=== PATIENT | female | born 1990 | race Hispanic/Latino ===

== ENCOUNTER 2019-04-04 23:00 | Inpatient (IN) | payer BC ==
--- NOTE | 2019-04-04 23:18 | Emergency Department Report ---
ED General Adult HPI - General Chief complaint: Abdominal Pain Stated complaint: ABD PAIN LUQ Time Seen by Provider: 04/04/19 23:15 Source: patient, RN notes reviewed Mode of arrival: Ambulatory Limitations: No Limitations - History of Present Illness Initial comments: This is a 28-year-old female. She is not known to this provider previously. She does not have a local primary care doctor. 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 Louis, with [facility]. Her past medical history includes paroxysmal A. fib, now resolved, currently on aspirin therapy, metoprolol, and flecainide. Has a distant history of kidney stones when she was a child. Currently on oral contraceptives. The patient presents to the emergency room today with complaints of nontraumatic left upper quadrant pain. The pain radiates to the epigastric region, into the back/flank. There is positive nausea, vomiting. Pain is aching and throbbing, increases with palpation, positioning, range of motion, decreases with rest and certain body positions. Currently, no nausea at this time, patient took antirheumatic medication prior to my evaluation at home. The patient meets no complaint of headache, neck pain, chest pain, shortness of breath. She denies urinary symptoms. Denies fevers and chills. Denies right lower quadrant abdominal pain. Denies DVT, pulmonary embolus risk factors, with the exception of oral contraceptive use. She has no nausea at this time, but still has some pain. The patient intermittent over the past few days, and gradually getting worse. -: Gradual, days(s) Location: abdomen Radiation: back, abdomen Quality: aching Consistency: intermittent Improves with: other Worsens with: other - Related Data Allergies Allergy/AdvReac Type Severity Reaction Status Date / Time No Known Allergies Allergy Verified 04/05/19 01:15 ED Review of Systems ROS: Stated complaint: ABD PAIN LUQ Other details as noted in HPI Constitutional: denies: fever Eyes: denies: eye discharge ENT: denies: epistaxis Respiratory: denies: cough Cardiovascular: denies: chest pain, syncope Gastrointestinal: abdominal pain, nausea, vomiting Genitourinary: denies: urgency, dysuria, frequency Musculoskeletal: back pain Skin: denies: lesions Neurological: denies: weakness Psychiatric: denies: anxiety ED Past Medical Hx - Past Medical History Previous Medical History?: Yes Hx Kidney Stones: Yes Additional medical history: afib - Surgical History Past Surgical History?: Yes Additional Surgical History: Right ACL reconstruction, "kidneys" - Social History Smoking Status: Current Every Day Smoker Substance Use Type: Alcohol ED Physical Exam - General Limitations: No Limitations General appearance: alert, in no apparent distress - Head Head exam: Present: atraumatic, normocephalic - Eye Eye exam: Present: normal appearance, EOMI. Absent: nystagmus - ENT ENT exam: Present: normal exam, normal orophraynx, mucous membranes moist, normal external ear exam - Neck Neck exam: Present: normal inspection, full ROM. Absent: tenderness, me ningismus - Respiratory Respiratory exam: Present: normal lung sounds bilaterally. Absent: respiratory distress - Cardiovascular Cardiovascular Exam: Present: normal rhythm, tachycardia, normal heart sounds. Absent: systolic murmur, diastolic murmur, rubs, gallop - GI/Abdominal GI/Abdominal exam: Present: soft, tenderness, other (there is left upper quadrant tenderness to deep palpation. There is no right upper quadrant tenderness. There is no right lower quadrant tenderness.). Absent: distended, guarding, rebound, rigid, pulsatile mass - Extremities Exam Extremities exam: Present: normal inspection, full ROM, other (2+ pulses noted in the bilateral upper, lower extremities. Compartments soft. No long bony tenderness. The pelvis is stable.). Absent: pedal edema, joint swelling, calf tenderness - Back Exam Back exam: Present: normal inspection, full ROM, CVA tenderness (L). Absent: t enderness, CVA tenderness (R), paraspinal tenderness, vertebral tenderness - Neurological Exam Neurological exam: Present: alert, normal gait, other (Extraocular movements intact. Tongue midline. No facial droop. Facial sensation intact to light touch in the V1, V2, V3 distribution bilaterally. 5 and 5 strength in 4 extremities.. Sensation is intact to light touch in 4 extremities.). Absent: motor sensory deficit - Psychiatric Psychiatric exam: Present: anxious - Skin Skin exam: Present: warm, dry, intact, normal color. Absent: rash ED Course Vital Signs 04/04/19 04/04/19 04/04/19 23:06 23:22 23:30 Temperature 98.1 F Pulse Rate 100 H 100 H Respiratory 16 18 13 Rate Blood Pressure 111/73 Blood Pressure [Right] O2 Sat by Pulse 100 Oximetry 04/05/19 04/05/19 04/05/19 00:00 00:31 01:01 Temperature Pulse Rate 96 H 93 H 92 H Respiratory 17 23 24 Rate Blood Pressure 119/71 119/71 119/71 Blood Pressure [Right] O2 Sat by Pulse 100 Oximetry 04/05/19 04/05/19 04/05/19 02:33 03:56 04:00 Temperature 99.5 F Pulse Rate Respiratory 17 Rate Blood Pressure 122/75 Blood Pressure [Right] O2 Sat by Pulse Oximetry 04/05/19 04/05/19 04:15 04:30 Temperature Pulse Rate 97 H 98 H Respiratory 20 Rate Blood Pressure 121/75 Blood Pressure 120/70 [Right] O2 Sat by Pulse 100 Oximetry - Reevaluation(s) Reevaluation #1: 04/04/19 23:56 Differential diagnosis, including not limited to: Renal colic, urinary tract infection, pancreatitis, pneumonia, pulmonary embolus Assessment and plan: 28-year-old female with left upper quadrant pain, tenderness, on oral contraceptives, not hypoxic, somewhat tachycardic, likely secondary to pain. I find the patient to be low risk by well's criteria. The patient otherwise has no pulmonary embolus or DVT risk factors. She appears to be uncomfortable. Remainder of physical exam unremarkable. She states she is not . We will treat the patient's pain and symptoms. We will obtain screening laboratory studies, urinalysis, left sided renal ultrasound, and x-ray of the chest. We will reassess once her data points have resulted. Reevaluation #2: 04/05/19 00:26 Laboratory studies reviewed and appreciated. Suspect renal/urinary tract infection etiology at this point in time. X-ray of the chest appears to be unremarkable. D-dimer slightly elevated. Went back and discussed this with the patient. I explain to the patient that I thought it was unlikely that the patient has a pulmonary embolus, and that is more likely that she has a primary renal issue. Patient prefers not to have CTA of chest secondary to concern for radiation exposure. Risks of undiagnosed PE were discussed with the patient, although, at this point time, I think a pulmonary embolus is quite unlikely. Through shared decision making, patient denied agreed to not obtain CTA of chest at this point time. Reevaluation #3: 04/05/19 04:36 Patient is experiencing intractable nausea and vomiting. Not able to keep any liquids down. Patient medicated with multiple anti-medic therapy. Patient also ruling in for systemic inflammatory response syndrome. Please note that patient was loaded empirically with antibiotics initially by myself, as we anticipated discharge. Therefore, blood cultures and lactic acid are drawn after antibiotic administration. Discussed with patient recommendation for admission for supportive care, IV fluids, and IV anti-medic. Patient verbalizes understanding and is amenable to this plan of care. Reevaluation #4: 04/05/19 04:37 CT scan of the abdomen and pelvis negative for acute disease, however, based off of the presentation, pyelonephritis is leading diagnosis. Reevaluation #5: 04/05/19 04:54 Dr Elena to admit ED Medical Decision Making - Lab Data Result diagrams: 04/04/19 23:47 04/04/19 23:47 Vital Signs 04/04/19 23:06 Temperature 98.1 F Respiratory 16 Rate - EKG Data -: EKG Interpreted by Me EKG shows normal: sinus rhythm Rate: normal - EKG Data When compared to previous EKG there are: previous EKG unavailable 04/04/19 23:57 Limited by motion artifact. This is a normal sinus rhythm. 95 bpm. Normal axis. QTC within normal limits. Limited by motion artifact. Not having chest pain. Not consistent with ST elevation myocardial infarction. - Radiology Data Radiology results: report reviewed, image reviewed interpreted by me: X-ray of the chest appears to be negative for acute disease. Print Report Referring Physician: KIARA MENDEZ Patient Name: KAYLIN ANN Date of : 1990 Sex: Female Report Date: 2019-04-05 Report Status: Finalized Findings [facility] [address] [place] [address] Cat Scan Report Signed Patient: KAYLIN ANN MR#: [id number] 0 : 1990 Acct:[id number] Age/Sex: 28 / F ADM Date: 04/04/19 Loc: ED Attending Dr: Ordering Physician: KIARA MENDEZ MD Date of Service: 04/05/19 Procedure(s): CT abdomen pelvis w con Accession Number(s): [id number] cc: KIARA MENDEZ MD PROCEDURE: CT ABDOMEN PELVIS W CON TECHNIQUE: Computerized axial tomography of the abdomen and pelvis was performed after the IV injection of iodinated nonionic contrast. CT DOSE LENGTH PRODUCT: mGycm HISTORY: left flank pain COMPARISONS: None . FINDINGS: Visualized lower thorax: No significant abnormality. Liver: Normal size and attenuation. Spleen: Normal size and attenuation. Gallbladder and biliary system: Normal. Pancreas: Normal. Adrenals: Normal. Kidneys: There are tiny bilateral kidney stones greater on the left. There are no ureteral stones. There is no hydronephrosis. There is no radiographic evidence of pyelonephritis.. GI tract: There is no bowel obstruction, colitis or enteritis. There is moderate stool in the colon. There is no fecal impaction. The appendix is normal.. Lymph nodes and mesentery: Normal. Vasculature: Normal.. Bladder: Normal. Reproductive organs: Normal uterus and ovaries.. Peritoneum: There is no ascites or free air, abscess or adenopathy.. Musculoskeletal structures: No significant abnormality. Other: None. IMPRESSION: There are tiny bilateral kidney stones greater on the left. There are no ureteral stones. There is no hydronephrosis. There is no radiographic evidence of pyelonephritis.. There is no bowel obstruction, colitis or enteritis. There is moderate stool in the colon. There is no fecal impaction. The appendix is normal.. There is no ascites or free air, abscess or adenopathy.. This document is electronically signed by Gonzales Austin MD., April 05 2019 02:48:28 AM ET Transcribed By: CO Dictated By: GONZALES AUSTIN MD Electronically Authenticated By: GONZALES AUSTIN MD Signed Date/Time: 04/05/19 Critical care attestation.: If time is entered above; I have spent that time in minutes in the direct care of this critically ill patient, excluding procedure time. ED Disposition Clinical Impression: Systemic inflammatory response syndrome (SIRS), Intractable nausea and vomiting, Pyelonephritis Disposition: OP ADMIT IP TO THIS HOSP Is pt being admited?: Yes Condition: Good Instructions: Abdominal Pain (ED) Referrals: KHADRA WHITMAN MD [Primary Care Provider] - 3-5 Days
[2019-04-04] MEDS ORDERED: TORADOL IV ONE (23:40)
[2019-04-04] MEDS ORDERED: NACL 0.9% 1000 ML 1,000 ML IV ONE (23:40)
[2019-04-04] MEDS ORDERED: SUBLIMAZE IV ONE (23:40)
[2019-04-05 00:06] LABS: Hematocrit 34.4 % (30.3-42.9); Hemoglobin 11.6 gm/dl (10.1-14.3); Mean Corpuscular HGB Conc 34 % (30-34); Mean Corpuscular Volume 93 fl (79-97); Platelet Count 194 K/mm3 (140-440); Red Blood Count 3.68 M/mm3 (3.65-5.03); Red Cell Distribution Width 11.9 % (13.2-15.2)
[2019-04-05 00:10] LABS: HCG Qualitative,Urine Negative (Negative)
[2019-04-05 00:15] LABS: Bilirubin,Urine NEG (Negative); Blood,Urine MOD (Negative); Color,Urine Yellow (Yellow); Protein,Urine <15 mg/dL mg/dL (Negative); Urobilinogen,Urine < 2.0 mg/dL (<2.0)
[2019-04-05 00:18] LABS: INR 1.03 (0.87-1.13)
[2019-04-05 00:22] LABS: Alanine Aminotransferase 9 units/L (7-56); Albumin 3.9 g/dL (3.9-5); BUN/Creatinine Ratio 9; Blood Urea Nitrogen 6 mg/dL (7-17); Calcium 8.9 mg/dL (8.4-10.2); Hemolysis Index 7
[2019-04-05] MEDS ORDERED: ROCEPHIN/NS 1 GM/50 ML 1 GM/50 ML BAG IV ONE (00:27)
--- NOTE | 2019-04-05 00:52 | XRay Report ---
PROCEDURE: XR CHEST ROUTINE 2V TECHNIQUE: PA and lateral chest radiographs were obtained. HISTORY: left lower thoracic pain, on ocp COMPARISONS: None. FINDINGS: Heart: Normal. Mediastinum/Vessels: Normal. Lungs/Pleural space: Normal. Bony thorax: No acute osseous abnormality. IMPRESSION: Normal examination. This document is electronically signed by Gonzales Barfield MD., April 05 2019 12:50:10 AM ET
[2019-04-05] MEDS ORDERED: REGLAN IV ONE (01:04)
[2019-04-05] MEDS ORDERED: REGLAN ONE (01:07)
--- NOTE | 2019-04-05 02:50 | Cat Scan Report ---
PROCEDURE: CT ABDOMEN PELVIS W CON TECHNIQUE: Computerized axial tomography of the abdomen and pelvis was performed after the IV inject ion of iodinated nonionic contrast. CT DOSE LENGTH PRODUCT: mGycm HISTORY: left flank pain COMPARISONS: None . FINDINGS: Visualized lower thorax: No significant abnormality. Liver: Normal size and attenuation. Spleen: Normal size and attenuation. Gallbladder and biliary system: Normal. Pancreas: Normal. Adrenals: Normal. Kidneys: There are tiny bilateral kidney stones greater on the left. There are no ureteral stones. Th ere is no hydronephrosis. There is no radiographic evidence of pyelonephritis.. GI tract: There is no bowel obstruction, colitis or enteritis. There is moderate stool in the colon. There is no fecal impaction. The appendix is normal.. Lymph nodes and mesentery: Normal. Vasculature: Normal.. Bladder: Normal. Reproductive organs: Normal uterus and ovaries.. Peritoneum: There is no ascites or free air, abscess or adenopathy.. Musculoskeletal structures: No significant abnormality. Other: None. IMPRESSION: There are tiny bilateral kidney stones greater on the left. There are no ureteral stones. There is no hydronephrosis. There is no radiographic evidence of pyelonephritis.. There is no bowel obstruction, colitis or enteritis. There is moderate stool in the colon. There is n o fecal impaction. The appendix is normal.. There is no ascites or free air, abscess or adenopathy.. This document is electronically signed by Gonzales Barfield MD., April 05 2019 02:48:28 AM ET
[2019-04-05] MEDS ORDERED: D5/0.45NS 1,000 ML IV SCH (03:00)
[2019-04-05] MEDS ORDERED: ZOFRAN IV ONE (03:24)
[2019-04-05] MEDS ORDERED: TYLENOL PO ONE (03:59)
[2019-04-05] MEDS ORDERED: NACL 0.9% 1000 ML 1,000 ML IV ONE (04:35)
--- NOTE | 2019-04-05 05:23 | History and Physical Report ---
History of Present Illness Date of examination: 04/05/19 Date of admission: 04/05/2019 Chief complaint: Dysuria and left flank pain for 3 days History of present illness: 28-year old female with past medical history of paroxysmal atrial fibrillation on aspirin and metoprolol and flecainide comes in for left upper quadrant pain. Associated nausea and vomiting. Pain is about 7-10 on a scale of 1-10. Sharp in nature. Intermittent. Patient also has dysuria. Low-grade fever present. Patient has history of kidney stones in the past especially at the age of 11 at which time she had ureteral stents which were removed later. No exacerbating or relieving factors Past Medical History Previous Medical History?: Yes Hx Kidney Stones: Yes Additional medical history: afib Surgical History Past Surgical History?: Yes Additional Surgical History: Right ACL reconstruction, "kidneys" Social History Smoking Status: Current Every Day Smoker Substance Use Type: Alcohol Family history HTN Review of Systems ROS: Stated complaint: ABD PAIN LUQ Other details as noted in HPI Constitutional: denies: fever Eyes: denies: eye discharge ENT: denies: epistaxis Respiratory: denies: cough Cardiovascular: denies: chest pain, syncope Gastrointestinal: abdominal pain, nausea, vomiting Genitourinary: denies: urgency, dysuria, frequency Musculoskeletal: back pain Skin: denies: lesions Neurological: denies: weakness Psychiatric: denies: anxiety Medications and Allergies Allergies Allergy/AdvReac Type Severity Reaction Status Date / Time No Known Allergies Allergy Verified 04/05/19 01:15 Active Meds: Active Medications Dextrose/Sodium Chloride (D5/0.45ns) 1,000 mls @ 0 mls/hr IV DIRECT SERA Last Admin: 04/05/19 03:55 Dose: 999 mls/hr Documented by: Sodium Chloride (Nacl 0.9% 1000 Ml) 1,000 mls @ 999 mls/hr IV BOLUS ONE Stop: 04/05/19 05:35 Last Admin: 04/05/19 04:57 Dose: 999 mls/hr Documented by: Exam - Constitutional Vitals: Temp Pulse Resp BP Pulse Ox 99.5 F 98 H 20 121/75 100 04/05/19 03:56 04/05/19 04:30 04/05/19 04:15 04/05/19 04:30 04/05/19 04:15 General appearance: Present: no acute distress, well-nourished - EENT Eyes: Present: PERRL ENT: hearing intact, clear oral mucosa - Neck Neck: Present: supple, normal ROM - Respiratory Respiratory effort: normal Respiratory: bilateral: CTA - Cardiovascular Heart rate: 95 Rhythm: regular Heart Sounds: Present: S1 & S2. Absent: rub, click - Extremities Extremities: pulses symmetrical, No edema Peripheral Pulses: within normal limits - Abdominal General gastrointestinal: Present: soft, non-tender, non-distended, normal bowel sounds Localized gastrointestinal: tender: LUQ (no guarding) Female genitourinary: Present: normal - Integumentary Integumentary: Present: clear, warm, dry - Musculoskeletal Musculoskeletal: gait normal, strength equal bilaterally - Psychiatric Psychiatric: appropriate mood/affect, intact judgment & insight - Neurologic Neurologic: CNII-XII intact, moves all extremities - Allied Health Allied health notes reviewed: nursing, case management Results - Labs CBC & Chem 7: 04/04/19 23:47 04/04/19 23:47 Labs: Laboratory Last Values WBC 15.8 K/mm3 (4.5-11.0) H 04/04/19 23:47 RBC 3.68 M/mm3 (3.65-5.03) 04/04/19 23:47 Hgb 11.6 gm/dl (10.1-14.3) 04/04/19 23:47 Hct 34.4 % (30.3-42.9) 04/04/19 23:47 MCV 93 fl (79-97) 04/04/19 23:47 MCH 32 pg (28-32) 04/04/19 23:47 MCHC 34 % (30-34) 04/04/19 23:47 RDW 11.9 % (13.2-15.2) L 04/04/19 23:47 Plt Count 194 K/mm3 (140-440) 04/04/19 23:47 PT 14.1 Sec. (12.2-14.9) 04/04/19 23:47 INR 1.03 (0.87-1.13) 04/04/19 23:47 267.08 ng/mlDDU (0-234) H 04/04/19 23:47 Sodium 137 mmol/L (137-145) 04/04/19 23:47 Potassium 3.8 mmol/L (3.6-5.0) 04/04/19 23:47 Chloride 103.3 mmol/L (98-107) 04/04/19 23:47 Carbon Dioxide 21 mmol/L (22-30) L 04/04/19 23:47 17 mmol/L 04/04/19 23:47 BUN 6 mg/dL (7-17) L 04/04/19 23:47 0.7 mg/dL (0.7-1.2) 04/04/19 23:47 Estimated GFR > 60 ml/min 04/04/19 23:47 9 % 04/04/19 23:47 Glucose 95 mg/dL (65-100) 04/04/19 23:47 Calcium 8.9 mg/dL (8.4-10.2) 04/04/19 23:47 0.30 mg/dL (0.1-1.2) 04/04/19 23:47 AST 14 units/L (5-40) 04/04/19 23:47 ALT 9 units/L (7-56) 04/04/19 23:47 58 units/L (35-129) 04/04/19 23:47 6.6 g/dL (6.3-8.2) 04/04/19 23:47 3.9 g/dL (3.9-5) 04/04/19 23:47 1.4 % 04/04/19 23:47 12 units/L (13-60) L 04/04/19 23:47 Yellow (Yellow) 04/04/19 23:10 Clear (Clear) 04/04/19 23:10 5.0 (5.0-7.0) 04/04/19 23:10 Ur Specific [place] 1.009 (1.003-1.030) 04/04/19 23:10 <15 mg/dl mg/dL (Negative) 04/04/19 23:10 Neg mg/dL (Negative) 04/04/19 23:10 Neg mg/dL (Negative) 04/04/19 23:10 Mod (Negative) 04/04/19 23:10 Neg (Negative) 04/04/19 23:10 Ur Reducing Substances Not Reportable 04/04/19 23:10 Neg (Negative) 04/04/19 23:10 Not Reportable 04/04/19 23:10 < 2.0 mg/dL (<2.0) 04/04/19 23:10 Ur Leukocyte Esterase Lg (Negative) 04/04/19 23:10 71.0 /HPF (0.0-6.0) H 04/04/19 23:10 4.0 /HPF (0.0-6.0) 04/04/19 23:10 U Epithel Cells (Auto) < 1.0 /HPF (0-13.0) 04/04/19 23:10 Urine HCG, Qual Negative (Negative) 04/04/19 23:10 Short CBC 04/04/19 Range/Units 23:47 WBC 15.8 H (4.5-11.0) K/mm3 Hgb 11.6 (10.1-14.3) gm/dl Hct 34.4 (30.3-42.9) % Plt Count 194 (140-440) K/mm3 BMP 04/04/19 23:47 Sodium 137 Potassium 3.8 Chloride 103.3 Carbon Dioxide 21 L BUN 6 L Creatinine 0.7 Glucose 95 Calcium 8.9 Liver Function 04/04/19 Range/Units 23:47 Total Bilirubin 0.30 (0.1-1.2) mg/dL AST 14 (5-40) units/L ALT 9 (7-56) units/L Alkaline Phosphatase 58 (35-129) units/L Albumin 3.9 (3.9-5) g/dL Urine 04/04/19 Range/Units 23:10 Urine Color Yellow (Yellow) Urine pH 5.0 (5.0-7.0) Ur Specific [place] 1.009 (1.003-1.030) Urine Protein <15 mg/dl (Negative) mg/dL Urine Glucose (UA) Neg (Negative) mg/dL - Imaging and Cardiology EKG: report reviewed (sinus rhythm heart rate of 95/m no acute ST-T wave changes) Chest x-ray: report reviewed (no acute findings) Imaging and Cardiology: CT abdomen There are tiny bilateral kidney stones greater on the left. There are no ureteral stones. There is no hydronephrosis. There is no radiographic evidence of pyelonephritis.. There is no bowel obstruction, colitis or enteritis. There is moderate stool in the colon. There is no fecal impaction. The appendix is normal.. There is no ascites or free air, abscess or adenopathy.. Assessment and Plan Advance Directives: Yes (full code) VTE prophylaxis?: Chemical Plan of care discussed with patient/family: Yes - Patient Problems (1) Systemic inflammatory response syndrome (SIRS) Current Visit: Yes Status: Acute Plan to address problem: Signs and symptoms consistent with SIRS Patient is a white count of 15,400 Urine WBCs about 71 IV Rocephin and IV fluids for now (2) Acute pyelonephritis Current Visit: Yes Status: Acute Plan to address problem: IV fluids and IV Rocephin pending urine cultures (3) Renal calculi Current Visit: Yes Status: Chronic Plan to address problem: Small Nonobstructive asymptomatic (4) Paroxysmal atrial fibrillation Current Visit: Yes Status: Inactive Plan to address problem: On flecainide and metoprolol (5) DVT prophylaxis Current Visit: Yes Status: Acute Plan to address problem: On Lovenox and GI prophylaxis
[2019-04-05] MEDS ORDERED: DILAUDID IV PRN (05:32)
[2019-04-05] MEDS ORDERED: TYLENOL PO PRN ×2 (05:32→05:34)
[2019-04-05] MEDS ORDERED: ZOFRAN IV PRN (05:32)
[2019-04-05] MEDS ORDERED: SODIUM CHLORIDE FLUSH SYRINGE 10 ML IV PRN ×2 (05:32→05:34)
[2019-04-05] MEDS ORDERED: REGLAN IV PRN (05:34)
[2019-04-05] MEDS: ZOFRAN IV PRN ×2 (07:59→17:43)
[2019-04-05] MEDS ORDERED: MORPHINE IV PRN (08:58)
[2019-04-05] MEDS ORDERED: TORADOL IV ONE (09:30)
[2019-04-05] MEDS ORDERED: SODIUM CHLORIDE FLUSH SYRINGE 10 ML IV SCH (10:00)
[2019-04-05] MEDS: PHENERGAN PR PRN (11:01)
[2019-04-05] MEDS: LOPRESSOR PO SCH (11:01)
[2019-04-05] MEDS: ROCEPHIN/NS 2 GM/100 ML 2 GM/100 ML BAG IV SCH (11:02)
[2019-04-05] MEDS: NACL 0.9% 1000 ML 1,000 ML IV SCH (11:03)
[2019-04-05] MEDS: SODIUM CHLORIDE FLUSH SYRINGE 10 ML IV SCH ×2 (11:25→23:45)
--- NOTE | 2019-04-05 11:31 | Event Note ---
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
[2019-04-05] MEDS: TAMBOCOR PO SCH ×2 (17:37→21:46)
[2019-04-05] MEDS: HALFPRIN EC PO SCH (17:43)
[2019-04-05] MEDS: TORADOL IV SCH (21:47)
[2019-04-06] MEDS: NACL 0.9% 1000 ML 1,000 ML IV SCH ×2 (01:29→14:32)
[2019-04-06] MEDS: ZOFRAN IV PRN (01:52)
[2019-04-06] MEDS: TORADOL IV SCH ×2 (06:48→17:34)
[2019-04-06 06:53] LABS: Basophils % (Auto) 0.1 % (0.0-1.8); Eosinophils # (Auto) 0.1 K/mm3 (0.0-0.4); Eosinophils % (Auto) 0.6 % (0.0-4.3); Hemoglobin 9.8 gm/dl (10.1-14.3); Lymphocytes # (Auto) 1.4 K/mm3 (1.2-5.4); Lymphocytes % (Auto) 13.8 % (13.4-35.0); Mean Corpuscular HGB Conc 35 % (30-34); Mean Corpuscular Volume 93 fl (79-97); Monocytes # (Auto) 0.9 K/mm3 (0.0-0.8); Monocytes % (Auto) 9.2 % (0.0-7.3); Platelet Count 177 K/mm3 (140-440); Red Blood Count 3.02 M/mm3 (3.65-5.03); Red Cell Distribution Width 11.8 % (13.2-15.2)
[2019-04-06 07:08] LABS: Hematocrit 30.1 % (30.3-42.9)
[2019-04-06 07:17] LABS: Alanine Aminotransferase 8 units/L (7-56); Albumin 3.3 g/dL (3.9-5); BUN/Creatinine Ratio 8; Blood Urea Nitrogen 5 mg/dL (7-17); Calcium 8.2 mg/dL (8.4-10.2); Hemolysis Index 4
[2019-04-06] MEDS: TAMBOCOR PO SCH ×2 (09:11→21:55)
[2019-04-06] MEDS: PHENERGAN PR PRN ×2 (09:11→20:42)
[2019-04-06] MEDS: PERCOCET 5/325 PO PRN (09:11)
[2019-04-06] MEDS: ROCEPHIN/NS 2 GM/100 ML 2 GM/100 ML BAG IV SCH (09:12)
[2019-04-06] MEDS: HALFPRIN EC PO SCH (09:12)
[2019-04-06] MEDS: LOPRESSOR PO SCH (09:14)
[2019-04-06] MEDS: SODIUM CHLORIDE FLUSH SYRINGE 10 ML IV SCH ×2 (09:21→21:55)
--- NOTE | 2019-04-06 09:52 | Progress Note ---
Assessment and Plan - Patient Problems (1) Systemic inflammatory response syndrome (SIRS) Current Visit: Yes Status: Acute Plan to address problem: Signs and symptoms consistent with SIRS Patient is a white count of 15,400 Urine WBCs about 71 IV Rocephin and IV fluids for now Improving (2) Acute pyelonephritis Current Visit: Yes Status: Acute Plan to address problem: IV fluids and IV Rocephin pending urine cultures (3) Renal calculi Current Visit: Yes Status: Chronic Plan to address problem: Small Nonobstructive asymptomatic (4) Paroxysmal atrial fibrillation Current Visit: Yes Status: Inactive Plan to address problem: On flecainide and metoprolol (5) DVT prophylaxis Current Visit: Yes Status: Acute Plan to address problem: On Lovenox and GI prophylaxis Subjective Date of service: 04/06/19 Principal diagnosis: SIRS and Acute pyelonephritis Interval history: Still vomiting Not tolerating dilaudid Objective - Constitutional Vitals: Vital Signs - 12hr 04/05/19 04/05/19 04/06/19 22:43 23:05 06:48 Temperature 98.6 F 98.6 F Pulse Rate 79 Respiratory 24 17 Rate Blood Pressure 115/65 O2 Sat by Pulse 98 Oximetry 04/06/19 04/06/19 06:58 09:14 Temperature 98.2 F Pulse Rate 74 87 Respiratory 16 Rate Blood Pressure 106/68 O2 Sat by Pulse 99 Oximetry General appearance: Present: no acute distress, well-nourished - EENT Eyes: PERRL, EOM intact ENT: hearing intact, clear oral mucosa Ears: bilateral: normal - Neck Neck: supple, normal ROM - Respiratory Respiratory effort: normal Respiratory: bilateral: CTA - Breasts Breasts: normal - Cardiovascular Rhythm: regular Heart Sounds: Present: S1 & S2. Absent: gallop, rub Extremities: pulses intact, No edema, normal color, Full ROM - Gastrointestinal General gastrointestinal: Present: soft, non-tender, non-distended, normal bowel sounds - Genitourinary Female genitourinary: normal - Integumentary Integumentary: clear, warm, dry - Musculoskeletal Musculoskeletal: 1, strength equal bilaterally - Neurologic Neurologic: moves all extremities - Psychiatric Psychiatric: memory intact, appropriate mood/affect, intact judgment & insight - Labs CBC & Chem 7: 04/06/19 06:22 04/06/19 06:22 Labs: Abnormal lab results 04/06/19 04/06/19 Range/Units 06:22 06:22 RBC 3.02 L (3.65-5.03) M/mm3 Hgb 9.8 L (10.1-14.3) gm/dl Hct 30.1 L (30.3-42.9) % MCHC 35 H (30-34) % RDW 11.8 L (13.2-15.2) % Dare % (Auto) 9.2 H (0.0-7.3) % Dare # 0.9 H (0.0-0.8) K/mm3 Seg Neutrophils % 76.3 H (40.0-70.0) % Potassium 3.4 L (3.6-5.0) mmol/L Carbon Dioxide 21 L (22-30) mmol/L BUN 5 L (7-17) mg/dL Creatinine 0.6 L (0.7-1.2) mg/dL Calcium 8.2 L (8.4-10.2) mg/dL Total Protein 5.7 L (6.3-8.2) g/dL Albumin 3.3 L (3.9-5) g/dL
[2019-04-06] MEDS ORDERED: K-DUR PO ONE (11:00)
[2019-04-06] MEDS: TORADOL IV PRN (17:57)
[2019-04-07] MEDS: TORADOL IV PRN ×3 (00:54→23:05)
[2019-04-07] MEDS: NACL 0.9% 1000 ML 1,000 ML IV SCH ×2 (06:51→19:01)
[2019-04-07 08:46] LABS: Basophils % (Auto) 0.1 % (0.0-1.8); Eosinophils # (Auto) 0.1 K/mm3 (0.0-0.4); Eosinophils % (Auto) 1.2 % (0.0-4.3); Hemoglobin 9.7 gm/dl (10.1-14.3); Lymphocytes # (Auto) 1.7 K/mm3 (1.2-5.4); Lymphocytes % (Auto) 29.5 % (13.4-35.0); Mean Corpuscular HGB Conc 35 % (30-34); Mean Corpuscular Volume 93 fl (79-97); Monocytes # (Auto) 0.6 K/mm3 (0.0-0.8); Monocytes % (Auto) 10.8 % (0.0-7.3); Platelet Count 178 K/mm3 (140-440); Red Blood Count 3.01 M/mm3 (3.65-5.03); Red Cell Distribution Width 11.8 % (13.2-15.2)
[2019-04-07] MEDS: PHENERGAN PR PRN ×2 (08:46→19:22)
[2019-04-07 09:45] LABS: BUN/Creatinine Ratio 8; Blood Urea Nitrogen 5 mg/dL (7-17); Calcium 8.5 mg/dL (8.4-10.2); Hemolysis Index 3
--- NOTE | 2019-04-07 10:19 | Progress Note ---
Assessment and Plan Assessment and plan: Sepsis. Etiology secondary to UTI. Continue to follow blood cultures. Klebsiella UTI. Continue Rocephin. Paroxysmal atrial fibrillation. Continue current medications. Disposition. Anticipate discharge in a.m. History Interval history: 28-year old female with past medical history of paroxysmal atrial fibrillation on aspirin, metoprolol and flecainide presented to the emergency department for left upper quadrant pain. Patient reported associated nausea and vomiting. Patient was admitted with diagnosis of paroxysmal atrial fibrillation, sepsis, UTI and small nonobstructive renal calculi. The patient underwent CT scan of the abdomen that revealed the bilateral kidney stones but no hydronephrosis or pyelonephritis. Urine culture revealed Klebsiella. The patient was treated with antibiotics of Rocephin which was sensitive. No new issues overnight. Patient still with left flank pain. Hospitalist Physical - Constitutional Vitals: Temp Pulse Resp BP Pulse Ox 98.7 F 86 16 121/79 98 04/07/19 05:29 04/07/19 05:29 04/07/19 05:29 04/07/19 05:29 04/07/19 05:29 General appearance: Present: no acute distress, well-nourished - EENT Eyes: Present: PERRL, EOM intact ENT: hearing intact, clear oral mucosa, dentition normal - Neck Neck: Present: supple, normal ROM - Respiratory Respiratory effort: normal Respiratory: bilateral: CTA - Cardiovascular Rhythm: regular Heart Sounds: Present: S1 & S2. Absent: gallop, rub - Extremities Extremities: no ischemia, No edema, Full ROM - Abdominal General gastrointestinal: soft, non-tender, non-distended, normal bowel sounds - Integumentary Integumentary: Present: clear, warm, dry - Neurologic Neurologic: CNII-XII intact, moves all extremities Results - Labs CBC & Chem 7: 04/07/19 08:05 04/07/19 08:05 Labs: Laboratory Last Values WBC 5.6 K/mm3 (4.5-11.0) 04/07/19 08:05 RBC 3.01 M/mm3 (3.65-5.03) L 04/07/19 08:05 Hgb 9.7 gm/dl (10.1-14.3) L 04/07/19 08:05 Hct 28.0 % (30.3-42.9) L 04/07/19 08:05 MCV 93 fl (79-97) 04/07/19 08:05 MCH 32 pg (28-32) 04/07/19 08:05 MCHC 35 % (30-34) H 04/07/19 08:05 RDW 11.8 % (13.2-15.2) L 04/07/19 08:05 Plt Count 178 K/mm3 (140-440) 04/07/19 08:05 Lymph % (Auto) 29.5 % (13.4-35.0) 04/07/19 08:05 [place] % (Auto) 10.8 % (0.0-7.3) H 04/07/19 08:05 Eos % (Auto) 1.2 % (0.0-4.3) 04/07/19 08:05 Baso % (Auto) 0.1 % (0.0-1.8) 04/07/19 08:05 Lymph # 1.7 K/mm3 (1.2-5.4) 04/07/19 08:05 [place] # 0.6 K/mm3 (0.0-0.8) 04/07/19 08:05 Eos # 0.1 K/mm3 (0.0-0.4) 04/07/19 08:05 Baso # 0.0 K/mm3 (0.0-0.1) 04/07/19 08:05 Seg Neutrophils % 58.4 % (40.0-70.0) 04/07/19 08:05 Seg Neutrophils # 3.3 K/mm3 (1.8-7.7) 04/07/19 08:05 PT 14.1 Sec. (12.2-14.9) 04/04/19 23:47 INR 1.03 (0.87-1.13) 04/04/19 23:47 267.08 ng/mlDDU (0-234) H 04/04/19 23:47 Sodium 142 mmol/L (137-145) 04/07/19 08:05 Potassium 4.0 mmol/L (3.6-5.0) 04/07/19 08:05 Chloride 109.0 mmol/L (98-107) H 04/07/19 08:05 Carbon Dioxide 22 mmol/L (22-30) 04/07/19 08:05 15 mmol/L 04/07/19 08:05 BUN 5 mg/dL (7-17) L 04/07/19 08:05 0.6 mg/dL (0.7-1.2) L 04/07/19 08:05 Estimated GFR > 60 ml/min 04/07/19 08:05 8 % 04/07/19 08:05 Glucose 90 mg/dL (65-100) 04/07/19 08:05 4.7 % (4-6) 04/05/19 06:20 Lactic Acid 1.40 mmol/L (0.7-2.0) 04/05/19 04:51 Calcium 8.5 mg/dL (8.4-10.2) 04/07/19 08:05 0.30 mg/dL (0.1-1.2) 04/06/19 06:22 AST 11 units/L (5-40) 04/06/19 06:22 ALT 8 units/L (7-56) 04/06/19 06:22 55 units/L (35-129) 04/06/19 06:22 5.7 g/dL (6.3-8.2) L 04/06/19 06:22 3.3 g/dL (3.9-5) L 04/06/19 06:22 1.4 % 04/06/19 06:22 12 units/L (13-60) L 04/04/19 23:47 Yellow (Yellow) 04/04/19 23:10 Clear (Clear) 04/04/19 23:10 5.0 (5.0-7.0) 04/04/19 23:10 Ur Specific [place] 1.009 (1.003-1.030) 04/04/19 23:10 <15 mg/dl mg/dL (Negative) 04/04/19 23:10 Neg mg/dL (Negative) 04/04/19 23:10 Neg mg/dL (Negative) 04/04/19 23:10 Mod (Negative) 04/04/19 23:10 Neg (Negative) 04/04/19 23:10 Ur Reducing Substances Not Reportable 04/04/19 23:10 Neg (Negative) 04/04/19 23:10 Not Reportable 04/04/19 23:10 < 2.0 mg/dL (<2.0) 04/04/19 23:10 Ur Leukocyte Esterase Lg (Negative) 04/04/19 23:10 71.0 /HPF (0.0-6.0) H 04/04/19 23:10 4.0 /HPF (0.0-6.0) 04/04/19 23:10 U Epithel Cells (Auto) < 1.0 /HPF (0-13.0) 04/04/19 23:10 Urine HCG, Qual Negative (Negative) 04/04/19 23:10 Active Medications - Current Medications Current Medications: Generic Name Dose Route Start Last Admin Trade Name Freq PRN Reason Stop Dose Admin Acetaminophen 650 mg 04/05/19 05:32 04/05/19 11:24 Tylenol PO 650 mg Q4H PRN Administration Pain MILD(1-3)/Fever >100.5/SPANN Aspirin 81 mg 04/05/19 12:00 04/06/19 09:12 Halfprin Ec PO 81 mg DAILY SERA Administration Flecainide Acetate 100 mg 04/05/19 10:00 04/06/19 21:55 Tambocor PO 100 mg Q12HR SERA Administration Sodium Chloride 1,000 mls @ 75 mls/hr 04/05/19 06:00 04/07/19 06:51 Nacl 0.9% 1000 Ml IV 75 mls/hr DIRECT SERA Administration Ceftriaxone Sodium 2 gm in 100 mls @ 200 mls/hr 04/05/19 10:00 04/06/19 09:12 Rocephin/Ns 2 Gm/100 Ml IV 200 mls/hr Q24HR SERA Administration Protocol Ketorolac Tromethamine 15 mg 04/06/19 17:29 04/07/19 08:45 Toradol IV 04/11/19 17:59 15 mg Q6H PRN Administration Pain, Moderate (4-6) Metoclopramide HCl 10 mg 04/05/19 05:34 Reglan IV Q6H PRN Nausea And Vomiting Metoprolol Tartrate 25 mg 04/05/19 10:00 04/06/19 09:14 Lopressor PO 25 mg DAILY SERA Administration Morphine Sulfate 2 mg 04/05/19 08:58 04/05/19 17:43 Morphine IV 2 mg Q4H PRN Administration Pain, Moderate (4-6) Ondansetron HCl 4 mg 04/05/19 05:34 04/06/19 01:52 Zofran IV 4 mg Q3H PRN Administration Nausea And Vomiting Oxycodone/Acetaminophen 1 tab 04/05/19 05:32 04/06/19 09:11 Percocet 5/325 PO 1 tab Q6H PRN Administration Pain, Moderate (4-6) Promethazine HCl 25 mg 04/05/19 05:34 04/07/19 08:46 Phenergan [place] 25 mg Q6H PRN Administration N/V IF NPO AND NO IV ACCESS Sodium Chloride 10 ml 04/05/19 10:00 04/06/19 21:55 Sodium Chloride Flush Syringe 10 Ml IV 10 ml BID SERA Administration Sodium Chloride 10 ml 04/05/19 05:32 Sodium Chloride Flush Syringe 10 Ml IV PRN PRN LINE FLUSH
[2019-04-07] MEDS: LOPRESSOR PO SCH (10:41)
[2019-04-07] MEDS: TAMBOCOR PO SCH ×2 (10:42→21:11)
[2019-04-07] MEDS: HALFPRIN EC PO SCH (10:42)
[2019-04-07] MEDS: ROCEPHIN/NS 2 GM/100 ML 2 GM/100 ML BAG IV SCH (10:43)
[2019-04-07] MEDS: SODIUM CHLORIDE FLUSH SYRINGE 10 ML IV SCH ×2 (10:43→21:12)
[2019-04-07] MEDS: PERCOCET 5/325 PO PRN (12:10)
[2019-04-08] MEDS ORDERED: PEPCID PO SCH (03:00)
--- NOTE | 2019-04-08 08:36 | Discharge Summary ---
Providers - Providers Date of Admission: 04/05/19 12:07 Date of discharge: 04/08/19 Attending physician: ERIC BISWAS Primary care physician: KHADRA WHITMAN Hospitalization Reason for admission: UTI Condition: Good Hospital course: 28-year old female with past medical history of paroxysmal atrial fibrillation on aspirin, metoprolol and flecainide presented to the emergency department for left upper quadrant pain. Patient reported associated nausea and vomiting. Patient was admitted with diagnosis of paroxysmal atrial fib rillation, sepsis, UTI and small nonobstructive renal calculi. The patient underwent CT scan of the abdomen that revealed the bilateral kidney stones but no hydronephrosis or pyelonephritis. Urine culture revealed Klebsiella. The patient was treated with antibiotics of Rocephin which was sensitive. The patient will be discharged on Cipro 500 mg twice a day for 10 days. Dedicated discharge time 32 minutes. Disposition: DC- TO HOME OR SELFCARE Time spent for discharge: 32 - Discharge Diagnoses (1) UTI (urinary tract infection) Status: Acute (2) Sepsis Status: Acute (3) Intractable nausea and vomiting Status: Acute (4) Systemic inflammatory response syndrome (SIRS) Status: Acute (5) Renal calculi Status: Chronic (6) Paroxysmal atrial fibrillation Status: Inactive Core Measure Documentation - Palliative Care Palliative Care/ Comfort Measures: Not Applicable - Core Measures Any of the following diagnoses?: none Exam - Constitutional Vitals: Temp Pulse Resp BP Pulse Ox 98.8 F 72 18 112/69 100 04/08/19 05:26 04/08/19 05:26 04/08/19 05:26 04/08/19 05:26 04/08/19 05:26 General appearance: Present: no acute distress, well-nourished - EENT Eyes: Present: PERRL ENT: hearing intact, clear oral mucosa - Neck Neck: Present: supple, normal ROM - Respiratory Respiratory effort: normal Respiratory: bilateral: CTA - Cardiovascular Heart Sounds: Present: S1 & S2. Absent: rub, click - Extremities Extremities: pulses symmetrical, No edema Peripheral Pulses: within normal limits - Abdominal General gastrointestinal: Present: soft, non-tender, non-distended, normal bowel sounds Female genitourinary: Present: normal - Integumentary Integumentary: Present: clear, warm, dry - Musculoskeletal Musculoskeletal: gait normal, strength equal bilaterally - Psychiatric Psychiatric: appropriate mood/affect, intact judgment & insight - Neurologic Neurologic: CNII-XII intact, moves all extremities Plan Activity: no restrictions Weight Bearing Status: Full Weight Bearing Diet: regular Follow up with: KHADRA WHITMAN MD [Primary Care Provider] - 3-5 Days Prescriptions: Doxycycline Hyclate [Doxycycline Hyclate TAB] 100 mg PO Q12HR #14 tab
[2019-04-08] MEDS: PHENERGAN PR PRN (09:16)
[2019-04-08] MEDS: ROCEPHIN/NS 2 GM/100 ML 2 GM/100 ML BAG IV SCH (09:16)
[2019-04-08] MEDS: TORADOL IV PRN (09:17)
[2019-04-08] MEDS: SODIUM CHLORIDE FLUSH SYRINGE 10 ML IV SCH (09:18)
[2019-04-08] MEDS: TAMBOCOR PO SCH (11:14)
[2019-04-08] MEDS: HALFPRIN EC PO SCH (11:14)
[2019-04-08 11:15] VITALS: BP 125/79
[2019-04-08] MEDS: LOPRESSOR PO SCH (11:15)
== END 2019-04-08 11:40 | disposition home or self-care (01) | DRG 872 ==
LOC: ED 23:00 → EEVIPCON 23:00 → 3A 04-05 06:14 → OBSVTOIN 04-05 12:07
PROVIDERS: ADMIT Internal Medicine; ATTEND Hospitalist
DX: A41.59 Other Gram-negative sepsis (principal); N10 Acute pyelonephritis; F17.200 Nicotine dependence, unspecified, uncomplicated; N20.0 Calculus of kidney; I48.0 Paroxysmal atrial fibrillation; Z87.442 Personal history of urinary calculi; Z82.49 Family history of ischemic heart disease and other diseases of the circulatory system; Z79.82 Long term (current) use of aspirin
CPT/HCPCS: 36415; 71046; 74177; 80048; 80053; 81001; 81025; 82140; 83036; 83690; 85025; 85027; 85379; 85610; 87040; 87076; 87086; 87186; 93005; 93010; 96361; 96365; 96375; 96376; G0378; J0696; J1170; J1885; J2270; J2405; J2765; J3010; J7030; Q9967

== ENCOUNTER 2019-04-17 15:21 | Outpatient (CLI) | payer BC ==
[2019-04-17 16:28] LABS: Bilirubin,Urine NEG (Negative); Blood,Urine NEG (Negative); Color,Urine Yellow (Yellow); Protein,Urine <15 mg/dL mg/dL (Negative); Urobilinogen,Urine < 2.0 mg/dL (<2.0); WBC,Urine < 1.0 /HPF (0.0-6.0)
== END 2019-04-17 15:22 | disposition home or self-care (01) ==
LOC: LAB 15:21
PROVIDERS: ATTEND Internal Medicine
DX: N39.0 Urinary tract infection, site not specified (principal)
CPT/HCPCS: 81001; 87086